=== PATIENT | female | born 1935 | race Caucasian/White ===

== ENCOUNTER → 2017-08-07 | Outpatient (CLI) | payer MEDICARE, OTHER ==
[~2017-08-07] MED LIST: ACET325 PO; CIPRO500 MG PO; CITA20 PO; CVS OMEGA-3 KR1 EACH PO; CYAN1000 PO; Citalopram HBr20 MG; DICL75ER PO; Desyrel150 MG PO; FLUC150A PO; FLUO20 PO; GABA100; HYDR1TAB94 PO; HYDRO; LAVAP17G PO; LEVSOD100 PO; LEVSOD50 PO; LEVSOD88 PO; LISHYD2025 PO; LISI10; LISI20 PO; MUPI2TO TOP; Norco 5-325 Ta1 EACH PO; OMEP20ER PO; ONDA4ODT MM; OXYB5 PO; OXYB5ER PO; PYRI100; Pyridium200 MG; Pyridium200 MG PO; SIMV10 PO; SIMV20 PO; Simvastatin20 MG; TRAZ100 PO; TRAZ150T57; Unithroid100 MCG PO; VITAMIN D 5000U PO
[2017-08-07 11:27] LABS: Source, Urine Clean Catch
[2017-08-07 11:52] LABS: Appearance, Urine Cloudy (Clear); Bilirubin, Urine Neg (Neg); Blood, Urine 3+ (Neg); Color, Urine Yellow (P-Yellow); Glucose Qualitative, Urine Neg (Neg); Ketones, Urine Neg (Neg); Leukocyte Esterase, Urine 3+ (Neg); Nitrite, Urine Neg (Neg); Protein, Urine 2+ (Neg); Urobilinogen, Urine NORM (Normal)
[2017-08-07 12:07] LABS: Bacteria Many /hpf; Red Blood Cells, Urine 0-2 /hpf (0-2); Squamous Epithelial Cells Rare /hpf (Few); White Blood Cells, Urine TNTC /hpf (0-5)
[2017-08-07 12:10] LABS: Creatinine, Urine Random 42.4 mg/dL (27.00-270.00); Protein, Urine Random 36.4 mg/dL (0.0-11.9)
== END | disposition home or self-care (01) ==
LOC: LAB SHORT 11:25 → LAB 11:25
PROVIDERS: Internal Medicine
DX: N18.3 Chronic kidney disease, stage 3 (moderate) (principal); N39.0 Urinary tract infection, site not specified
CPT/HCPCS: 81001; 82570; 84156; 87077; 87086; 87186

== ENCOUNTER 2018-08-23 17:45 | Inpatient (IN) | payer MEDICARE, OTHER ==
[~2018-08-23] VITALS: Ht 165.1 cm; Wt 57.5 kg
[~2018-08-23 17:45] MED LIST changes: -VITAMIN D 5000U PO; +VITAMIN D PO
[2018-08-23 18:22] LABS: BASOPHILS ABSOLUTE AUTO 0.05 K/mm3 (0.00-0.23); BASOPHILS PERCENT AUTO 1 % (0-2); EOSINOPHILS PERCENT AUTO 1 % (0-6); Hematocrit 30.1 % (33.0-51.0); Hemoglobin 9.4 g/dL (11.5-16.0); IMMATURE GRAN ABSOLUTE AUTO 0.05 K/mm3 (0.00-0.10); IMMATURE GRAN PERCENT AUTO 1 % (0-1); LYMPHOCYTES ABSOLUTE AUTO 2.69 K/mm3 (0.84-5.20); LYMPHOCYTES PERCENT AUTO 24 % (21-46); MONOCYTES ABSOLUTE AUTO 1.03 K/mm3 (0.16-1.47); MONOCYTES PERCENT AUTO 9 % (4-13); Mean Corpuscular HGB 27.6 pg (26.0-34.0); Mean Corpuscular HGB Conc 31.2 g/dL (31.5-36.5); Mean Corpuscular Volume 89 fL (80-100); Mean Platelet Volume 11.4 fL (9.1-12.4); NEUTROPHILS ABSOLUTE AUTO 7.12 K/mm3 (1.96-9.15); NEUTROPHILS PERCENT AUTO 64 % (41-73); Platelet Count 297 K/mm3 (150-400); RDW Coefficient Variation 17.2 % (11.7-14.2); RDW Standard Deviation 55.3 fL (35.1-46.3); White Blood Cell Count 11.04 K/mm3 (4.00-11.30)
[2018-08-23 18:46] LABS: Albumin, Blood 3.6 g/dL (3.4-5.0); Bilirubin, Total 0.4 mg/dL (0.1-1.0); Calcium, Blood 10.6 mg/dL (8.5-10.1); Creatinine, Blood 1.33 mg/dL (0.40-1.00); Globulin, Blood 3.5 g/dL (2.2-4.0); Potassium, Blood 3.7 mmol/L (3.5-5.5); Total Protein, Blood 7.1 g/dL (6.4-8.2)
[2018-08-23 18:52] LABS: Source, Urine Clean Catch
[2018-08-23 19:04] LABS: Blood, Urine 4+ (Neg); Glucose Qualitative, Urine Neg (Neg); Ketones, Urine Neg (Neg); Leukocyte Esterase, Urine Neg (Neg); Nitrite, Urine Neg (Neg); Protein, Urine 4+ (Neg); Specific Gravity, Urine 1.015 (1.003-1.022); Urobilinogen, Urine NORM (Normal)
[2018-08-23 19:14] LABS: Appearance, Urine Bloody (Clear); Bilirubin, Urine 1+ (Neg); Color, Urine Red (P-Yellow)
[2018-08-23 19:15] LABS: Red Blood Cells, Urine TNTC /hpf (0-2)
[2018-08-23 19:16] LABS: Bacteria Many /hpf; Squamous Epithelial Cells Few /hpf (Few)
--- NOTE | 2018-08-24 05:33 | NUR ---
SHIFT SUMMARY PT WAS A NEW ADMIT TO FLOOR AROUND 0000 LAST NIGHT. AOX3, REPORTS "NOT ABLE TO THINK CLEARLY," DUE TO FEELING WEAK & EXHAUSTED. FOLLOWS DIRECTIONS. PER TELE PROCESS PUMPER PT IS NSR W/HR 80. DENIES SOB. REPORTED FEELING NAUSEOUS & WAS MEDICATED 1X W/ZOFRAN PER ORDERS. REPORTS 7-10 PAIN IN LOWER ABD UNDER UMBILICUS, ABD VERY TENDER TO PALPATION W/HYPOACTIVE BT. PT VERY WEAK, SHAKY & UNSTEADY ON FEET, NEED 2 ASSIST W/GAIT BELT FOR TRANSFERS. PT IS STILL HAVING ACTIVE BLEEDING & SOAKED THROUGH A PULL UP W/EXTRA PAD IN ROUGHLY 2 HOURS. PT HAS ONLY PASSED 1 BLOOD CLOT ROUGHLY 2INCH LONG. CALL LIGHT IS IN REACH & BED ALARM IS PLACED FOR SAFETY.
[2018-08-24 08:30] LABS: BASOPHILS ABSOLUTE AUTO 0.03 K/mm3 (0.00-0.23); BASOPHILS PERCENT AUTO 0 % (0-2); EOSINOPHILS PERCENT AUTO 0 % (0-6); Hemoglobin 8.5 g/dL (11.5-16.0); IMMATURE GRAN ABSOLUTE AUTO 0.07 K/mm3 (0.00-0.10); IMMATURE GRAN PERCENT AUTO 1 % (0-1); LYMPHOCYTES ABSOLUTE AUTO 1.25 K/mm3 (0.84-5.20); LYMPHOCYTES PERCENT AUTO 8 % (21-46); MONOCYTES ABSOLUTE AUTO 1.31 K/mm3 (0.16-1.47); MONOCYTES PERCENT AUTO 9 % (4-13); Mean Corpuscular HGB 28.1 pg (26.0-34.0); Mean Corpuscular HGB Conc 31.5 g/dL (31.5-36.5); Mean Corpuscular Volume 89 fL (80-100); Mean Platelet Volume 11.9 fL (9.1-12.4); NEUTROPHILS ABSOLUTE AUTO 12.36 K/mm3 (1.96-9.15); NEUTROPHILS PERCENT AUTO 82 % (41-73); Platelet Count 290 K/mm3 (150-400); RDW Coefficient Variation 17.4 % (11.7-14.2); RDW Standard Deviation 57.7 fL (35.1-46.3); Red Blood Cell Count 3.02 M/mm3 (3.80-5.20); White Blood Cell Count 15.02 K/mm3 (4.00-11.30)
[2018-08-24 08:39] LABS: Bun/Creatinine Ratio 18.6 (12.0-20.0); Creatinine, Blood 1.29 mg/dL (0.40-1.00); Potassium, Blood 3.6 mmol/L (3.5-5.5)
[2018-08-24 12:26] LABS: Hematocrit 24.6 % (33.0-51.0); Hemoglobin 7.9 g/dL (11.5-16.0)
[2018-08-24 13:14] LABS: Source, Urine Catheter
[2018-08-24 13:20] LABS: Bilirubin, Urine Neg (Neg); Blood, Urine 4+ (Neg); Glucose Qualitative, Urine Neg (Neg); Ketones, Urine Neg (Neg); Leukocyte Esterase, Urine Neg (Neg); Nitrite, Urine Neg (Neg); Protein, Urine 4+ (Neg); Specific Gravity, Urine 1.015 (1.003-1.022); Urobilinogen, Urine NORM (Normal)
[2018-08-24 14:04] LABS: Appearance, Urine Bloody (Clear); Color, Urine Red (P-Yellow)
[2018-08-24 14:08] LABS: Red Blood Cells, Urine TNTC /hpf (0-2)
[2018-08-24 14:20] LABS: Bacteria Few /hpf; Squamous Epithelial Cells Few /hpf (Few)
--- NOTE | 2018-08-24 17:49 | NUR ---
FOUND CATHETER OUT, BALOON DEFLATED, PT DENIES PULLING IT, NEW ONE TO BE PLACED
[2018-08-24 18:04] LABS: Source, Urine Catheter
[2018-08-24 18:15] LABS: Bilirubin, Urine Neg (Neg); Blood, Urine 4+ (Neg); Glucose Qualitative, Urine Neg (Neg); Ketones, Urine Neg (Neg); Leukocyte Esterase, Urine Neg (Neg); Nitrite, Urine Neg (Neg); Protein, Urine 4+ (Neg); Specific Gravity, Urine 1.015 (1.003-1.022); Urobilinogen, Urine NORM (Normal)
--- NOTE | 2018-08-24 18:16 | NUR ---
SUMMARY PT AWAKE IN BED EATING HER DINNER, POOR APPETITE, PT HAS BEEN MEDICATED PER EMAR FOR PAIN IN HER ABD, RUCKER CATH REPLACED THIS EVENING, PT ANABEL WELL, RUCKER IRRIGATED Q4 HOURS AND PRN, RARE SMALL BLOOD CLOT SEEN, URINE REMAINS DARK BURGUNDY IN COLOR, DR EDWARDS AWARE, WANTS TO CONTINUE TO MONITOR FOR CLOTS AND BLEEDING, VSS, WILL CONT TO MONITOR
[2018-08-24 18:40] LABS: Appearance, Urine Bloody (Clear); Color, Urine Red (P-Yellow)
[2018-08-24 18:42] LABS: Bacteria Rare /hpf; Red Blood Cells, Urine TNTC /hpf (0-2); Squamous Epithelial Cells Not Seen /hpf (Few); White Blood Cells, Urine 25-50 /hpf (0-5)
--- NOTE | 2018-08-24 18:42 | NUR ---
CATHETER REPLACED, PT ANABEL POORLY, BALOON INFLATED, BURGUNDY URINE
[2018-08-25 05:29] LABS: BASOPHILS ABSOLUTE AUTO 0.06 K/mm3 (0.00-0.23); BASOPHILS PERCENT AUTO 1 % (0-2); EOSINOPHILS ABSOLUTE AUTO 0.04 K/mm3 (0.00-0.68); EOSINOPHILS PERCENT AUTO 0 % (0-6); Hematocrit 23.7 % (33.0-51.0); Hemoglobin 7.4 g/dL (11.5-16.0); IMMATURE GRAN ABSOLUTE AUTO 0.04 K/mm3 (0.00-0.10); IMMATURE GRAN PERCENT AUTO 0 % (0-1); LYMPHOCYTES ABSOLUTE AUTO 1.94 K/mm3 (0.84-5.20); LYMPHOCYTES PERCENT AUTO 17 % (21-46); MONOCYTES ABSOLUTE AUTO 1.39 K/mm3 (0.16-1.47); MONOCYTES PERCENT AUTO 12 % (4-13); Mean Corpuscular HGB 28.7 pg (26.0-34.0); Mean Corpuscular HGB Conc 31.2 g/dL (31.5-36.5); Mean Platelet Volume 11.8 fL (9.1-12.4); NEUTROPHILS ABSOLUTE AUTO 8.16 K/mm3 (1.96-9.15); NEUTROPHILS PERCENT AUTO 70 % (41-73); Platelet Count 240 K/mm3 (150-400); RDW Coefficient Variation 17.8 % (11.7-14.2); RDW Standard Deviation 59.8 fL (35.1-46.3); Red Blood Cell Count 2.58 M/mm3 (3.80-5.20); White Blood Cell Count 11.63 K/mm3 (4.00-11.30)
[2018-08-25 05:30] LABS: Mean Corpuscular Volume 92 fL (80-100)
--- NOTE | 2018-08-25 06:39 | NUR ---
a+o, pain controlled with medication, call light in reach, urin still red, catheter flushed, room air, appeared to rest peacfully but stated that she was unable to sleep
[2018-08-25 11:37] LABS: Hematocrit 23.9 % (33.0-51.0); Hemoglobin 7.3 g/dL (11.5-16.0)
[2018-08-26 05:29] LABS: BASOPHILS ABSOLUTE AUTO 0.04 K/mm3 (0.00-0.23); BASOPHILS PERCENT AUTO 1 % (0-2); EOSINOPHILS PERCENT AUTO 3 % (0-6); Hemoglobin 7.9 g/dL (11.5-16.0); IMMATURE GRAN ABSOLUTE AUTO 0.03 K/mm3 (0.00-0.10); IMMATURE GRAN PERCENT AUTO 0 % (0-1); LYMPHOCYTES ABSOLUTE AUTO 1.52 K/mm3 (0.84-5.20); LYMPHOCYTES PERCENT AUTO 19 % (21-46); MONOCYTES ABSOLUTE AUTO 0.99 K/mm3 (0.16-1.47); MONOCYTES PERCENT AUTO 13 % (4-13); Mean Corpuscular HGB 27.9 pg (26.0-34.0); Mean Corpuscular HGB Conc 30.4 g/dL (31.5-36.5); Mean Corpuscular Volume 92 fL (80-100); Mean Platelet Volume 11.5 fL (9.1-12.4); NEUTROPHILS ABSOLUTE AUTO 5.14 K/mm3 (1.96-9.15); NEUTROPHILS PERCENT AUTO 65 % (41-73); Platelet Count 224 K/mm3 (150-400); RDW Coefficient Variation 17.6 % (11.7-14.2); RDW Standard Deviation 59.6 fL (35.1-46.3); Red Blood Cell Count 2.83 M/mm3 (3.80-5.20); White Blood Cell Count 7.92 K/mm3 (4.00-11.30)
[2018-08-26 06:42] LABS: Bun/Creatinine Ratio 15.8 (12.0-20.0); Calcium, Blood 9.9 mg/dL (8.5-10.1); Creatinine, Blood 1.2 mg/dL (0.40-1.00); Potassium, Blood 3.9 mmol/L (3.5-5.5)
--- NOTE | 2018-08-26 07:24 | NUR ---
new iv, a+o, focused on pain, call light in reach, saline locked, room air, sbar report provided to returning staff.
--- NOTE | 2018-08-26 08:28 | NUR ---
RUCKER IRRIGATED WITH 30 ML STERILE WATER. MILKED FLUID OUT AFTER IRRIGATION. NOT DARK YESTERDAY, BUT WITH VERY TINY CLOTS. PATIENT SLEEPING.
--- NOTE | 2018-08-26 10:29 | NUR ---
DENIES PAIN AT THIS TIME. RUCKER IRRIGATED FOR SECOND TIME THIS SHIFT. STILL DRAINING DARK RED URINE.
--- NOTE | 2018-08-26 12:00 | NUR ---
RUCKER IRRIGATED WITH ABOUT 320 ML STERILE WATER. LAST RETURN WAS LIGHT RED. SOME SMALL CLOTS. CATCHER FILTER TIP TO TAKE OUT RUCKER.
--- NOTE | 2018-08-26 15:16 | NUR ---
AWARE PATIENT REFUSED LAB DRAW X 2. HAD LARGE CLOTS WHEN USING BSC. PER ; RUN IN ONE BAG IV THEN SALINE LOCK, WILL TRY LAB DRAW IN A.M., LEAVE RUCKER OUT.
--- NOTE | 2018-08-26 19:06 | NUR ---
ALERT. ORIENTED. INTERMITTENT PLEASANT, COOPERATIVE TO VERY ANGRY AND UNCOOPERATIVE. LARGE BLOOD CLOTS X 2 WHEN TAKEN TO BSC. MEDICATED FOR PAIN X ONE WITH GOOD RESULTS. WILL NEED H&H IN AM PER . ONE PERSON ASSIST. GOOD APPETITE. REPORT TO NIGHT RN
--- NOTE | 2018-08-27 05:01 | NUR ---
VSS, AFEBRILE, A/O, PT SLEPT WELL OVERNOC. NO COMPLAINTS. NO SIGNIFICANT CHANGES NOTED. WILL REPORT TO ON-COMING SHIFT.
--- NOTE | 2018-08-27 05:16 | NUR ---
PT REQUESTED THAT LIDOCAINE BE APPLIED TO THE SITE PRIOR TO LAB DRAWING BLOOD. HOWEVER, SHE THEN TOLD LAB THAT IT WAS NOT NUMB ENOUGH AND REFUSED TO PERMIT LABS TO BE DRAWN. WILL REPORT TO ON-COMING SHIFT.
[2018-08-27 15:24] LABS: BASOPHILS ABSOLUTE AUTO 0.03 K/mm3 (0.00-0.23); BASOPHILS PERCENT AUTO 0 % (0-2); EOSINOPHILS PERCENT AUTO 2 % (0-6); Hematocrit 23.3 % (33.0-51.0); Hemoglobin 7.1 g/dL (11.5-16.0); IMMATURE GRAN ABSOLUTE AUTO 0.04 K/mm3 (0.00-0.10); IMMATURE GRAN PERCENT AUTO 1 % (0-1); LYMPHOCYTES ABSOLUTE AUTO 1.53 K/mm3 (0.84-5.20); LYMPHOCYTES PERCENT AUTO 17 % (21-46); MONOCYTES ABSOLUTE AUTO 0.71 K/mm3 (0.16-1.47); MONOCYTES PERCENT AUTO 8 % (4-13); Mean Corpuscular HGB 28.2 pg (26.0-34.0); Mean Corpuscular HGB Conc 30.5 g/dL (31.5-36.5); Mean Corpuscular Volume 93 fL (80-100); Mean Platelet Volume 11.2 fL (9.1-12.4); NEUTROPHILS ABSOLUTE AUTO 6.36 K/mm3 (1.96-9.15); NEUTROPHILS PERCENT AUTO 72 % (41-73); Platelet Count 278 K/mm3 (150-400); RDW Coefficient Variation 17.3 % (11.7-14.2); RDW Standard Deviation 58.3 fL (35.1-46.3); Red Blood Cell Count 2.52 M/mm3 (3.80-5.20); White Blood Cell Count 8.87 K/mm3 (4.00-11.30)
--- NOTE | 2018-08-27 18:43 | NUR ---
SHIFT SUMMARY PT PLEASANT TODAY. STATES SHE APPRECIATES HAVING THINGS EXPLAINED TO HER. ENCOURAGED HER TO ASK QUESTIONS IF SHE DOESN'T KNOW AND I WOULD BE HAPPY TO EXPLAIN MORE. SPOKE WITH GRANDDAUGHTER ON PHONE WITH PTS VERBAL APPROVAL. SPOKE WITH DEVEN VILLATORO ATTACHE WELL IN REGARDS TO GRANDDAUGHTER CONCERN ABOUT PT GOING BACK HOME AND HOPING TO COME UP FROM [place] PRIOR TO PT DISCHARGING. CONTINUES TO HAVE BLEEDING IN ATTENDS WITH ONLY A FEW SMALL CLOTS.
--- NOTE | 2018-08-28 05:18 | NUR ---
VSS, AFEBRILE, A/O, PT SLEPT WELL OVERNOC. PT AWOKE IN A FAIRLY COOPERATIVE MOOD TODAY AND PERMITTED THE LAB TO DRAW BLOOD FOR ORDERED LAB WORK. PT APPEARS TO BE IN BETTER SPIRITS THIS MORNING. NO SIGNIFICANT CHANGES NOTED. WILL REPORT TO ON-COMING SHIFT.
[2018-08-28 05:25] LABS: BASOPHILS ABSOLUTE AUTO 0.03 K/mm3 (0.00-0.23); BASOPHILS PERCENT AUTO 1 % (0-2); EOSINOPHILS ABSOLUTE AUTO 0.26 K/mm3 (0.00-0.68); EOSINOPHILS PERCENT AUTO 5 % (0-6); Hematocrit 22.9 % (33.0-51.0); IMMATURE GRAN ABSOLUTE AUTO 0.03 K/mm3 (0.00-0.10); IMMATURE GRAN PERCENT AUTO 1 % (0-1); LYMPHOCYTES ABSOLUTE AUTO 1.46 K/mm3 (0.84-5.20); LYMPHOCYTES PERCENT AUTO 29 % (21-46); MONOCYTES ABSOLUTE AUTO 0.76 K/mm3 (0.16-1.47); MONOCYTES PERCENT AUTO 15 % (4-13); Mean Corpuscular HGB 28.2 pg (26.0-34.0); Mean Corpuscular HGB Conc 30.6 g/dL (31.5-36.5); Mean Corpuscular Volume 92 fL (80-100); Mean Platelet Volume 11.2 fL (9.1-12.4); NEUTROPHILS ABSOLUTE AUTO 2.52 K/mm3 (1.96-9.15); NEUTROPHILS PERCENT AUTO 50 % (41-73); Platelet Count 301 K/mm3 (150-400); RDW Coefficient Variation 17.4 % (11.7-14.2); RDW Standard Deviation 58.7 fL (35.1-46.3); Red Blood Cell Count 2.48 M/mm3 (3.80-5.20); White Blood Cell Count 5.06 K/mm3 (4.00-11.30)
[2018-08-28 05:46] LABS: Albumin, Blood 2.5 g/dL (3.4-5.0); Anion Gap 4 mmol/L (6-16); Blood Urea Nitrogen 19 mg/dL (8-24); CO2, Blood 29 mmol/L (21-32); Calcium, Blood 9.9 mg/dL (8.5-10.1); Chloride, Blood 106 mmol/L (98-108); Creatinine, Blood 1.27 mg/dL (0.40-1.00); Glomerular Filtration Rate 43 (60-); Glucose, Blood 97 mg/dL (70-99); Phosphorus, Blood 2.7 mg/dL (2.5-4.9); Potassium, Blood 4.2 mmol/L (3.5-5.5); Sodium, Blood 139 mmol/L (136-145)
[2018-08-28 14:46] LABS: Source, Urine Catheter
[2018-08-28 14:53] LABS: Appearance, Urine Cloudy (Clear); Bilirubin, Urine Neg (Neg); Blood, Urine 5+ (Neg); Color, Urine Yellow (P-Yellow); Glucose Qualitative, Urine Neg (Neg); Ketones, Urine Neg (Neg); Leukocyte Esterase, Urine 3+ (Neg); Nitrite, Urine Neg (Neg); Protein, Urine 2+ (Neg); Urobilinogen, Urine NORM (Normal)
[2018-08-28 15:06] LABS: Red Blood Cells, Urine 50-100 /hpf (0-2); White Blood Cells, Urine 50-100 /hpf (0-5)
[2018-08-28 15:07] LABS: Bacteria Rare /hpf; Squamous Epithelial Cells Rare /hpf (Few)
--- NOTE | 2018-08-28 20:05 | NUR ---
SHE HAS NOT HAD HEMATURIA TODAY. SHE REMAINS INCONTINENT. UA SENT TO LAB TODAY. HER 2ND UNIT OF PRBC'S IS INFUSING. SHE RECEIVED LASIX AFTER THE FIRST UNIT. VSS. MEDICATED FOR LOW BACK PAIN X1 TODAY WITH PO DILAUDID. NO DIZZINESS OR C/O SOB. LUNGS REMAIN CLEAR. HIGHEST TEMP 99.8. MOM GIVEN FOR CONSTIPATION. NO BM YET. HER GRANDDAUGHTER CALLED THE PATIENT ADVOCATE UPSET THAT WE WERE NOT COMMUNICATING WITH HER. I NOTIFIED THAT THE PATIENT WANTS HIM TO CALL HER TO DISCUSS HER MEDICAL PLAN. HE SAYS HE WILL BE GLAD TO CALL HER TOMORROW.
--- NOTE | 2018-08-29 05:15 | NUR ---
VSS, AFEBRILE, A/O. PT SLEPT VERY WELL OVERNOC. PT ANTICIPATES BEING D/C'D TODAY OR TOMORROW AND APPEARS TO BE IN GOOD SPIRITS ABOUT IT. NO COMPLAINTS. NO SIGNIFICANT CHANGES NOTED. WILL REPORT TO ON-COMING SHIFT.
[2018-08-29 05:46] LABS: BASOPHILS ABSOLUTE AUTO 0.06 K/mm3 (0.00-0.23); BASOPHILS PERCENT AUTO 1 % (0-2); EOSINOPHILS ABSOLUTE AUTO 0.34 K/mm3 (0.00-0.68); EOSINOPHILS PERCENT AUTO 5 % (0-6); Hematocrit 29.7 % (33.0-51.0); Hemoglobin 9.7 g/dL (11.5-16.0); IMMATURE GRAN ABSOLUTE AUTO 0.04 K/mm3 (0.00-0.10); IMMATURE GRAN PERCENT AUTO 1 % (0-1); LYMPHOCYTES ABSOLUTE AUTO 1.64 K/mm3 (0.84-5.20); LYMPHOCYTES PERCENT AUTO 26 % (21-46); MONOCYTES ABSOLUTE AUTO 0.91 K/mm3 (0.16-1.47); MONOCYTES PERCENT AUTO 14 % (4-13); Mean Corpuscular HGB 28.5 pg (26.0-34.0); Mean Corpuscular HGB Conc 32.7 g/dL (31.5-36.5); NEUTROPHILS ABSOLUTE AUTO 3.37 K/mm3 (1.96-9.15); NEUTROPHILS PERCENT AUTO 53 % (41-73); Platelet Count 311 K/mm3 (150-400); RDW Coefficient Variation 16.9 % (11.7-14.2); RDW Standard Deviation 51.7 fL (35.1-46.3); White Blood Cell Count 6.36 K/mm3 (4.00-11.30)
[2018-08-29 05:50] LABS: Mean Corpuscular Volume 87 fL (80-100)
[2018-08-29 06:10] LABS: Albumin, Blood 2.8 g/dL (3.4-5.0); Anion Gap 4 mmol/L (6-16); Blood Urea Nitrogen 23 mg/dL (8-24); Bun/Creatinine Ratio 18.4 (12.0-20.0); CO2, Blood 30 mmol/L (21-32); Calcium, Blood 10.2 mg/dL (8.5-10.1); Chloride, Blood 103 mmol/L (98-108); Creatinine, Blood 1.25 mg/dL (0.40-1.00); Glomerular Filtration Rate 43 (60-); Glucose, Blood 95 mg/dL (70-99); Phosphorus, Blood 2.9 mg/dL (2.5-4.9); Potassium, Blood 3.9 mmol/L (3.5-5.5); Sodium, Blood 137 mmol/L (136-145)
[2018-08-29] MEDS ORDERED: SERT100 PO (11:36)
--- NOTE | 2018-08-29 15:41 | NUR ---
DISCHARGE SUMMARY PATIENT A&O X4. DENIES ANY PAIN, SOB, OR NAUSEA. PATIENT HAS NOT HAD ANY ACUTE CHANGES THIS SHIFT. RN MEDICATED PER E JUN. DISCHARGE INSTRUCTIONS WERE REVIEWED WITH THE PATIENT AND HER FAMILY WHO WAS AT THE BEDSIDE. MEDICATIONS WERE FAXED TO [facility]. [facility] IS TO CALL TOMORROW 08/30/18 TO SCHEDULE PATIENTS FOLLOW UP APPOINTMENT. [facility] WILL BE REFERRED TO A UROLOGIST. IV WAS D/C, WNL. DISTRICT PLANT SUPERVISOR ESCORTED PATIENT OUT BY WHEELCHAIR, ALL BELONGINGS IN HAND.
== END 2018-08-29 13:24 | disposition home or self-care (01) | DRG 690 ==
LOC: ER 17:45 → MEDS 17:46 → ENPENDDIS 08-29 12:04 → MEDS 08-29 13:24
PROVIDERS: Emergency Medicine; Family Medicine; Internal Medicine Endocrinology, Diabetes & Metabolism; ADMIT Internal Medicine
PROC: 30233N1 Transfusion of Nonautologous Red Blood Cells into Peripheral Vein, Percutaneous Approach (ICD-10-PCS; principal; 2018-08-28)
DX: N30.91 Cystitis, unspecified with hematuria (principal); D62 Acute posthemorrhagic anemia; Z92.21 Personal history of antineoplastic chemotherapy; F41.8 Other specified anxiety disorders; E78.5 Hyperlipidemia, unspecified; E03.9 Hypothyroidism, unspecified; M19.90 Unspecified osteoarthritis, unspecified site; R32 Unspecified urinary incontinence; I16.0 Hypertensive urgency; N18.3 Chronic kidney disease, stage 3 (moderate); I12.9 Hypertensive chronic kidney disease with stage 1 through stage 4 chronic kidney disease, or unspecified chronic kidney disease
CPT/HCPCS: 36415; 51702; 74176; 80048; 80053; 80069; 81001; 82947; 83690; 85014; 85018; 85025; 86850; 86900; 86901; 86923; 87077; 87086; 87186; 96361-59; 96365-59; 96366-59; 96375-59; 96376; 96376-59; 99285-25; G0378; J0696; J1170; J1940; J2405; J3480; J7030; P9016; Q0163

== ENCOUNTER 2019-03-07 08:43 | Emergency (ER) | payer MEDICARE, OTHER ==
[~2019-03-07] VITALS: Ht 162.6 cm; Wt 57.1 kg
[~2019-03-07 08:43] MED LIST changes: +SERT100 PO
[2019-03-07] MEDS ORDERED: GABA100 PO (08:51)
[2019-03-07] MEDS ORDERED: OXYB5 PO (08:52)
[2019-03-07 09:23] LABS: BASOPHILS ABSOLUTE AUTO 0.04 K/mm3 (0.00-0.23); BASOPHILS PERCENT AUTO 0 % (0-2); EOSINOPHILS ABSOLUTE AUTO 0.08 K/mm3 (0.00-0.68); EOSINOPHILS PERCENT AUTO 1 % (0-6); Hematocrit 30.9 % (33.0-51.0); Hemoglobin 10.1 g/dL (11.5-16.0); IMMATURE GRAN ABSOLUTE AUTO 0.18 K/mm3 (0.00-0.10); IMMATURE GRAN PERCENT AUTO 2 % (0-1); LYMPHOCYTES ABSOLUTE AUTO 1.65 K/mm3 (0.84-5.20); LYMPHOCYTES PERCENT AUTO 16 % (21-46); MONOCYTES ABSOLUTE AUTO 1.46 K/mm3 (0.16-1.47); MONOCYTES PERCENT AUTO 15 % (4-13); Mean Corpuscular HGB 31.2 pg (26.0-34.0); Mean Corpuscular HGB Conc 32.7 g/dL (31.5-36.5); Mean Corpuscular Volume 95 fL (80-100); Mean Platelet Volume 10.8 fL (9.1-12.4); NEUTROPHILS ABSOLUTE AUTO 6.68 K/mm3 (1.96-9.15); NEUTROPHILS PERCENT AUTO 66 % (41-73); Platelet Count 389 K/mm3 (150-400); RDW Coefficient Variation 15.6 % (11.7-14.2); RDW Standard Deviation 53.5 fL (35.1-46.3); Red Blood Cell Count 3.24 M/mm3 (3.80-5.20); White Blood Cell Count 10.09 K/mm3 (4.00-11.30)
[2019-03-07 09:39] LABS: Alanine Aminotransfer (ALT/SGP 22 U/L (12-78); Albumin, Blood 2.8 g/dL (3.4-5.0); Albumin/Globulin Ratio 0.7 (0.8-1.8); Alk Phos 80 U/L (50-136); Anion Gap 5 mmol/L (6-16); Aspartate Aminotrans (AST/SGOT 27 U/L (12-37); Bilirubin, Total 0.3 mg/dL (0.1-1.0); Blood Urea Nitrogen 49 mg/dL (8-24); Bun/Creatinine Ratio 26.9 (12.0-20.0); CO2, Blood 28 mmol/L (21-32); Calcium, Blood 11.2 mg/dL (8.5-10.1); Chloride, Blood 100 mmol/L (98-108); Creatinine, Blood 1.82 mg/dL (0.40-1.00); Globulin, Blood 4.1 g/dL (2.2-4.0); Glomerular Filtration Rate 28 (60-); Glucose, Blood 92 mg/dL (70-99); Sodium, Blood 133 mmol/L (136-145); Total Protein, Blood 6.9 g/dL (6.4-8.2); Troponin I <0.015 ng/mL (0.000-0.040)
[2019-03-07] MEDS ORDERED: HYDR1TAB94 PO (12:10)
[2019-03-07] MEDS ORDERED: ONDA4ODT SL (12:10)
[2019-03-07 12:32] LABS: Source, Urine Voided
[2019-03-07 12:43] LABS: Bilirubin, Urine Neg (Neg); Blood, Urine 5+ (Neg); Glucose Qualitative, Urine Neg (Neg); Ketones, Urine Neg (Neg); Leukocyte Esterase, Urine 3+ (Neg); Nitrite, Urine Neg (Neg); Protein, Urine 4+ (Neg); Urobilinogen, Urine NORM (Normal)
[2019-03-07 12:52] LABS: Appearance, Urine Bloody (Clear); Color, Urine Red (P-Yellow)
[2019-03-07 12:53] LABS: Red Blood Cells, Urine TNTC /hpf (0-2); White Blood Cells, Urine TNTC /hpf (0-5)
[2019-03-07 12:54] LABS: Bacteria Few /hpf; Squamous Epithelial Cells Few /hpf (Few)
== END 2019-03-07 13:19 | disposition home or self-care (01) ==
LOC: ER 08:43
PROVIDERS: Emergency Medicine
DX: S06.9X9A Unspecified intracranial injury with loss of consciousness of unspecified duration, initial encounter (principal); E86.0 Dehydration; R31.9 Hematuria, unspecified; I10 Essential (primary) hypertension; F41.9 Anxiety disorder, unspecified; F32.9 Major depressive disorder, single episode, unspecified; E78.5 Hyperlipidemia, unspecified; E03.9 Hypothyroidism, unspecified; Z85.72 Personal history of non-Hodgkin lymphomas; Z79.899 Other long term (current) drug therapy; W01.10XA Fall on same level from slipping, tripping and stumbling with subsequent striking against unspecified object, initial encounter
CPT/HCPCS: 70450; 71046; 72125; 80053; 81001; 83880; 84443; 84484; 85025; 93005; 93010; 96361; 96374; 96375; 96376; 99285-25; J2405; J3010; J7030; P9612

== ENCOUNTER 2019-03-21 13:36 | Inpatient (IN) | payer MEDICARE, OTHER ==
[~2019-03-21] VITALS: Ht 165.1 cm; Wt 50.9 kg
[~2019-03-21 13:36] MED LIST changes: +GABA100 PO; +ONDA4ODT SL
[2019-03-21 14:51] LABS: BASOPHILS ABSOLUTE AUTO 0.03 K/mm3 (0.00-0.23); BASOPHILS PERCENT AUTO 0 % (0-2); EOSINOPHILS ABSOLUTE AUTO 0.01 K/mm3 (0.00-0.68); EOSINOPHILS PERCENT AUTO 0 % (0-6); Hematocrit 26.3 % (33.0-51.0); Hemoglobin 8.9 g/dL (11.5-16.0); IMMATURE GRAN ABSOLUTE AUTO 0.21 K/mm3 (0.00-0.10); IMMATURE GRAN PERCENT AUTO 1 % (0-1); LYMPHOCYTES ABSOLUTE AUTO 0.93 K/mm3 (0.84-5.20); LYMPHOCYTES PERCENT AUTO 5 % (21-46); MONOCYTES ABSOLUTE AUTO 1.63 K/mm3 (0.16-1.47); MONOCYTES PERCENT AUTO 9 % (4-13); Mean Corpuscular HGB 31.1 pg (26.0-34.0); Mean Corpuscular HGB Conc 33.8 g/dL (31.5-36.5); Mean Corpuscular Volume 92 fL (80-100); Mean Platelet Volume 10.1 fL (9.1-12.4); NEUTROPHILS ABSOLUTE AUTO 16.04 K/mm3 (1.96-9.15); NEUTROPHILS PERCENT AUTO 85 % (41-73); Platelet Count 522 K/mm3 (150-400); RDW Coefficient Variation 15.3 % (11.7-14.2); RDW Standard Deviation 50.4 fL (35.1-46.3); Red Blood Cell Count 2.86 M/mm3 (3.80-5.20); White Blood Cell Count 18.85 K/mm3 (4.00-11.30)
[2019-03-21 15:04] LABS: Bilirubin, Urine Neg (Neg); Blood, Urine 5+ (Neg); Glucose Qualitative, Urine Neg (Neg); Ketones, Urine Neg (Neg); Leukocyte Esterase, Urine 3+ (Neg); Nitrite, Urine Neg (Neg); Protein, Urine 3+ (Neg); Source, Urine Clean Catch; Urobilinogen, Urine NORM (Normal); pH, Urine 6.5 (5.0-8.0)
[2019-03-21 15:06] LABS: Albumin, Blood 2.4 g/dL (3.4-5.0); Albumin/Globulin Ratio 0.5 (0.8-1.8); Bilirubin, Total 0.2 mg/dL (0.1-1.0); Bun/Creatinine Ratio 24.4 (12.0-20.0); Calcium, Blood 10.7 mg/dL (8.5-10.1); Creatinine, Blood 2.95 mg/dL (0.40-1.00); Globulin, Blood 4.9 g/dL (2.2-4.0); Potassium, Blood 5.3 mmol/L (3.5-5.5); Total Protein, Blood 7.3 g/dL (6.4-8.2)
[2019-03-21 15:17] LABS: Appearance, Urine Cloudy (Clear); Color, Urine Yellow (P-Yellow)
[2019-03-21 15:18] LABS: Bacteria Many /hpf; Red Blood Cells, Urine 25-50 /hpf (0-2); Squamous Epithelial Cells Few /hpf (Few); White Blood Cells, Urine TNTC /hpf (0-5)
--- NOTE | 2019-03-21 18:23 | NUR ---
PT ARRIVED TO UNIT VIA BED. PT HAS SOME CONFUSION, IS COOPERAITIVE, AND PLESANT. ORIENTATED TO ROOM.
[2019-03-22 05:22] LABS: BASOPHILS ABSOLUTE AUTO 0.02 K/mm3 (0.00-0.23); BASOPHILS PERCENT AUTO 0 % (0-2); EOSINOPHILS PERCENT AUTO 0 % (0-6); Hematocrit 21.9 % (33.0-51.0); Hemoglobin 7.4 g/dL (11.5-16.0); IMMATURE GRAN ABSOLUTE AUTO 0.13 K/mm3 (0.00-0.10); IMMATURE GRAN PERCENT AUTO 1 % (0-1); LYMPHOCYTES ABSOLUTE AUTO 0.94 K/mm3 (0.84-5.20); LYMPHOCYTES PERCENT AUTO 6 % (21-46); MONOCYTES ABSOLUTE AUTO 1.64 K/mm3 (0.16-1.47); MONOCYTES PERCENT AUTO 11 % (4-13); Mean Corpuscular HGB Conc 33.8 g/dL (31.5-36.5); Mean Corpuscular Volume 92 fL (80-100); Mean Platelet Volume 10.5 fL (9.1-12.4); NEUTROPHILS ABSOLUTE AUTO 12.51 K/mm3 (1.96-9.15); NEUTROPHILS PERCENT AUTO 82 % (41-73); Platelet Count 465 K/mm3 (150-400); RDW Coefficient Variation 15.3 % (11.7-14.2); RDW Standard Deviation 50.4 fL (35.1-46.3); Red Blood Cell Count 2.39 M/mm3 (3.80-5.20); White Blood Cell Count 15.24 K/mm3 (4.00-11.30)
[2019-03-22 05:50] LABS: Albumin, Blood 1.9 g/dL (3.4-5.0); Albumin/Globulin Ratio 0.5 (0.8-1.8); Bilirubin, Total 0.4 mg/dL (0.1-1.0); Bun/Creatinine Ratio 27.5 (12.0-20.0); Calcium, Blood 9.4 mg/dL (8.5-10.1); Creatinine, Blood 2.36 mg/dL (0.40-1.00); Globulin, Blood 3.9 g/dL (2.2-4.0); Potassium, Blood 4.9 mmol/L (3.5-5.5); Total Protein, Blood 5.8 g/dL (6.4-8.2)
--- NOTE | 2019-03-22 06:21 | NUR ---
SHIFT SUMMARY PT IS ORIENTED TO SELF, FAMILY, PLACE. DISORIENTED TO DATE/TIME, CURRRENT EVENTS, CONFUSED BY COMMANDS. NS RUNNING @ 100 ML/HR. PT REPORTS EXTREMELY POOR APPETITE FOR THE LAST FEW MONTHS, WONT EAT FOR "SEVERAL DAYS AT A TIME". PT REPORTS WEAKNESS HAS MADE HER BEDRIDDEN AND IMMOBILE FOR THE LAST WEEK OR SO. PT ALSO STATES SHE IS READY TO GIVE UP AND MISSES HER [facility]. PALLIATVE CARE CONSULT. WILL CONT TO MONITOR AND PROIVDE CARE UNTIL PRESUMED BY ONCOMING RN.
--- NOTE | 2019-03-22 15:55 | NUR ---
SHIFT SUMMARY- PT SLEPT INTERMITENTLY THROUGHOUT THIS SHIFT. PT/OT WORKED WITH PT THIS AFTERNOON. FAMILY IN THE ROOM THROUGHOUT THIS SHIFT, FAMILY EXPRESSED CONCERNS ABOUT DISCHARGE AND PLACMENT AFTER HER STAY IN THE HOSPITAL. THEY FEEL SHE NEEDS A HIGHER LEVEL OF CARE THAN WHAT SHE IS CURRENTLY RECIEVING AT HER CURRENT RESIDENCE. RECHARGER CONSULT PLACED.
--- NOTE | 2019-03-22 18:29 | NUR ---
PT ONLY HAD ONE SMALL VOID THIS MORNING. ENCOURAGED PT TO USE THE BEDSIDE CAMMODE OR BEDPAN, PT REFUSED. PREFORMED BLADDER SCAN PT HAD 540 IN HER BLADDER. TOLD PT THAT HER BLADDER WAS FULL AND SHE NEEDED TO VOID, LET HER KNOW THAT SHE WAS WEARING ATTENDS AND THAT WE COULD CLEAN HER UP IF SHE DID NOT WANT TO GET UP. PT VOIDED BUT STOPPED SOON SHE BEGAN TO LEAK OUT OF ATTENDS. RESCANDED BLADDER AND THERE WAS 478 VOLUME. PT SAID SHE DID NOT WANT TO FINISH URINATING IN THE BED BUT DID NOT WANT TO GET UP. I LET PT KNOW THAT THE DR WANTED HER TO HAVE A CATHATER IF SHE WAS UNABLE TO EMPTY HER BLADDER. SPOKE WITH DR. HE SAID TO CONTINUE TO ENCOURAGE HER TO VOID BUT WE WOULD NEED TO PLACE A CATH IF SHE DID NOT. WILL CONTINUE TO ENCOURAGE VOIDING AND WILL NOTIFY ONCOMING NURSE.
--- NOTE | 2019-03-23 05:43 | NUR ---
AROUND 0530 THE PATIENT WAS BLADDER SCANNED AND IT SHOWED URINARY RETENTION >300. PER DR ALLY I STRAIGHT CATHETERIZED THE PATIENT AND WAS ABLE TO DRAIN 550ML OF URINE FROM HER BLADDER.
--- NOTE | 2019-03-23 06:02 | NUR ---
SHIFT SUMMARY PATIENT SLIGHTLY RESISTIVE TO CARE, HOWEVER WHEN THE IMPORTANCE OF THE TASKS ARE EXPLAINED TO HER SHE IS PLEASANT AND AGREEABLE TO THE TASK. SHE HAD BEEN RETAINING URINE AND WAS STRAIGHT CATHED. SHE SLEPT MOST OF THE NIGHT. IV IN LEFT ARM PATENT AND INFUSING. BED IN LOWEST POSITION WITH WHEELS LOCKED AND ALARM ON. CALL LIGHT WITHIN REACH. REPORT GIVEN TO ONCOMING RN.
[2019-03-23 09:54] LABS: BASOPHILS ABSOLUTE AUTO 0.04 K/mm3 (0.00-0.23); BASOPHILS PERCENT AUTO 0 % (0-2); EOSINOPHILS ABSOLUTE AUTO 0.02 K/mm3 (0.00-0.68); EOSINOPHILS PERCENT AUTO 0 % (0-6); Hematocrit 20.5 % (33.0-51.0); Hemoglobin 6.8 g/dL (11.5-16.0); IMMATURE GRAN ABSOLUTE AUTO 0.18 K/mm3 (0.00-0.10); IMMATURE GRAN PERCENT AUTO 2 % (0-1); LYMPHOCYTES ABSOLUTE AUTO 1.45 K/mm3 (0.84-5.20); LYMPHOCYTES PERCENT AUTO 13 % (21-46); MONOCYTES ABSOLUTE AUTO 1.63 K/mm3 (0.16-1.47); MONOCYTES PERCENT AUTO 15 % (4-13); Mean Corpuscular HGB 31.2 pg (26.0-34.0); Mean Corpuscular HGB Conc 33.2 g/dL (31.5-36.5); Mean Corpuscular Volume 94 fL (80-100); Mean Platelet Volume 9.9 fL (9.1-12.4); NEUTROPHILS ABSOLUTE AUTO 7.64 K/mm3 (1.96-9.15); NEUTROPHILS PERCENT AUTO 70 % (41-73); Platelet Count 448 K/mm3 (150-400); RDW Coefficient Variation 15.5 % (11.7-14.2); RDW Standard Deviation 52.8 fL (35.1-46.3); Red Blood Cell Count 2.18 M/mm3 (3.80-5.20); White Blood Cell Count 10.96 K/mm3 (4.00-11.30)
[2019-03-23 10:09] LABS: Bun/Creatinine Ratio 27.6 (12.0-20.0); Calcium, Blood 9.4 mg/dL (8.5-10.1); Creatinine, Blood 1.81 mg/dL (0.40-1.00); Potassium, Blood 4.5 mmol/L (3.5-5.5)
--- NOTE | 2019-03-24 00:11 | NUR ---
0007 REFUSAL OF CARE IN TO CHECK ON PATIENT TO SEE IF HER ATTENDS WERE WET OR DRY. PATIENT STATED "GET OUT, LEAVE ME ALONE". EXPLAINED TO THE PATIENT THAT IT IS IMPORTANT TO NOT SIT IN URINE SOAKED BREIFS. PATIENT ADMANT THAT WE (RN/COVERER) LEAVE HER ALONE. CURRENTLY DRY BRIEFS. WILL RE-CHECK IN A COUPLE OF HOURS.
--- NOTE | 2019-03-24 03:42 | NUR ---
SHIFT SUMMARY PATIENT FINISHED TRANSFUSING THE UNIT OF BLOOD THAT WAS STARTED ON DAY SHIFT. SHE HAD NO ADVERSE REACTIONS OVER NIGHT. SHE HAS BEEN RESISTANT TO GETTING UP TO THE BEDSIDE COMMODE TO URINATE. ASIDE FROM THAT, SHE SLEPT MOST OF THE NIGHT. IV IN RIGHT FOREARM IS PATENT AND FLUSHES. BED IN LOWEST POSITION WITH WHEELS LOCKED. CALL LIGHT AND BELONGINGS WITHIN REACH. REPORT GIVEN TO ONCMARTI MARIE.
--- NOTE | 2019-03-24 06:13 | NUR ---
PHYSICIAN COMMUNICATION PATIENT RECEIVED A UNIT OF PACKED RED BLOOD CELLS YESTERDAY AND HAD NOT RECEIVED ORDERS TO RECHECK HER H&H. CALLED THE SOLAR INSTALLER PHYSICIAN AT [phone] TO SEE WHAT LABS HE WOULD WANT TO ORDER. HE ORDERED A CBC AND BMP.
[2019-03-24 06:31] LABS: BASOPHILS ABSOLUTE AUTO 0.06 K/mm3 (0.00-0.23); BASOPHILS PERCENT AUTO 1 % (0-2); EOSINOPHILS PERCENT AUTO 1 % (0-6); Hematocrit 25.3 % (33.0-51.0); Hemoglobin 8.3 g/dL (11.5-16.0); IMMATURE GRAN ABSOLUTE AUTO 0.24 K/mm3 (0.00-0.10); IMMATURE GRAN PERCENT AUTO 2 % (0-1); LYMPHOCYTES ABSOLUTE AUTO 1.11 K/mm3 (0.84-5.20); LYMPHOCYTES PERCENT AUTO 10 % (21-46); MONOCYTES ABSOLUTE AUTO 1.24 K/mm3 (0.16-1.47); MONOCYTES PERCENT AUTO 11 % (4-13); Mean Corpuscular HGB 30.3 pg (26.0-34.0); Mean Corpuscular HGB Conc 32.8 g/dL (31.5-36.5); Mean Corpuscular Volume 92 fL (80-100); Mean Platelet Volume 9.8 fL (9.1-12.4); NEUTROPHILS ABSOLUTE AUTO 8.11 K/mm3 (1.96-9.15); NEUTROPHILS PERCENT AUTO 75 % (41-73); Platelet Count 445 K/mm3 (150-400); RDW Coefficient Variation 16.9 % (11.7-14.2); RDW Standard Deviation 57.5 fL (35.1-46.3); Red Blood Cell Count 2.74 M/mm3 (3.80-5.20); White Blood Cell Count 10.86 K/mm3 (4.00-11.30)
[2019-03-24 07:05] LABS: Bun/Creatinine Ratio 27.2 (12.0-20.0); Calcium, Blood 9.4 mg/dL (8.5-10.1); Creatinine, Blood 1.62 mg/dL (0.40-1.00); Potassium, Blood 4.4 mmol/L (3.5-5.5)
--- NOTE | 2019-03-24 18:45 | NUR ---
PT. SITTING IN BED AT THIS TIME. JESSIKAM WAS GIVEN THIS AM FOR REPORT OF PAIN. HAS NOT COMPLAINED OF PAIN FOR THE REST OF THIS SHIFT. PT. HAD A TEMP OF 100.1 EARLIER. ALL OF PT'S FAMILY WAS IN ROOM TODAY, PT. VERY EMOTIONAL ABOUT HER LIVING SITUATION WHEN SHE LEAVES HERE. FEELS EVERYONE IS TRYING TO RIP HER OFF OF THE MONEY SHE RECIEVED FOR THE SALE OF HER HOME. SUPPOSED TO BE A MEETING TOMORROW WITH HER 2 GRANDCHILDREN REGARDING HER PLACEMENT. PT. HAD A SHOWER THIS AM AND WAS UP IN CHAIR.
--- NOTE | 2019-03-24 21:48 | NUR ---
LATE ENTRY AROUND 2030 DURING SHARON ASSESSMENT PT REPORTED SHE "HAS THE RIGHT TO " & IS "JUST WANTING TO SINCE I'M NOT GETTING ANY BETTER." PT ASKED IF I HAD A KNIFE SO SHE COULD STAB HERSELF & END EVERYTHING. I REPORTED NO & ASKED IF SHE WAS FEELING SUICIDAL. PT DENIES BEING SUICIDAL, STATES SHE IS "TOO CHICKEN". PT VERY UPSET, IRRITABLE WITH STAFF WHILE CHANGING ATTENDS & THREATENS TO HIT STAFF. INFORMED PT HER BEHAVIOUR WAS UNCALLED FOR SINCE WE ARE JUST TRYING TO HELP. STATES SHE HAS 8/10 PAIN ALLOVER, BUT DENIES THE NEED FOR TYLENOL & STATES "IT DOESN'T WORK." REPOSITIONED & PROVIDED UNINTERUPTED REST FOR PAIN @THIS TIME & I WILL CONT TO MONITOR.
--- NOTE | 2019-03-25 05:27 | NUR ---
SHIFT SUMMARY NO ACUTE CHANGES. SLEPT SOUNDLY T/O NIGHT. AOX4. IRRITABLE W/STAFF @BEGINNING OF SHIFT, SEE PREVIOUS NOTE, MORE CALM & COOPERATIVE W/CARE THE NIGHT PROGRESSED. VSS. DENIES N/V OR DYSPNEA. REPORTED GENERALIZED PAIN BUT DENIED THE NEED FOR MEDICATION. INCONTINENT OF URINE & CHANGED Q2H, EXCEPT 1X WHEN PT REFUSED ATTENDS TO BE CHANGED OR CHECKED. CALL LIGHT IN REACH.
--- NOTE | 2019-03-25 06:40 | NUR ---
MOOD PT TEARFUL THIS AM, STATING SHE IS NERVOUS ABOUT MEETING TODAY. STATES SHE LOST HER 15 YRS AGO & HER ONLY CHILD PASSED 9 YRS AGO, THEREFORE SHE HAS BEEN LIVING INDEPENDENTLY SINCE & IS NOT READY TO GIVE THAT UP. STATES SHE IS AWARE SHE NEEDS EXTRA HELP & WILL PROBABLY HAVE TO GO TO A CARE FACILITY, BUT SHE'S JUST NOT READY TO GIVE UP HER INDEPENDENCE. THANKED PT FOR OPENING UP & SHARING HER CONCERNS.
[2019-03-25] MEDS ORDERED: SYNTHROID175 MCG PO (13:43)
[2019-03-25] MEDS ORDERED: ONDA4ODT MM (13:51)
[2019-03-25] MEDS ORDERED: ACET500 PO (13:52)
[2019-03-25] MEDS ORDERED: MIRT15ST PO (13:53)
[2019-03-25] MEDS ORDERED: CIPR250 PO (13:54)
--- NOTE | 2019-03-25 15:40 | NUR ---
pt discharged THE PT AND HER DAUGHTER VERBALIZED UNDERSTANDING OF THE DC INSTRUCTIONS, THE PTS PRESCRIPTIONS WERE FAXED TO [facility] REQUESTED, THE PT HAD A LARGE BM AFTER SUPPOSITORY AND FLEETS ENEMA, THE BM WAS FORMED, THE PT WAS TRANSFERED VIA WHEELCHAIR ACCOMPANIED BY ESCORT AND HER GRANDDAUGHTER, THE PT WPPEARED TO BE BREATHING EASILY ON RA AT THE TIME OF DC
--- NOTE | 2019-03-25 17:26 | NUR ---
Initial Visits: Pt seen by palliative care for advanced care planning. Past medical history of renal failure, anemia, failure to thrive, UTI, urinary retention and severe depression. Pt is alert, oriented. She reports fatigue and lower mood. She reports that she ambulates with a walker at baseline. When she is depressed, she doesn't eat and she doesn't walk. She lives at [facility] and recently sold her home. Her granddaughter and grandson are present and attentive to her needs. They both live in [place] and are up here to see that she gets healthy. She has a close friend, Jaleesa, that helps her a great deal. Pt reports her depression level is 9/10 right now. Discussed advanced care planning. Pt has a advance directive in place. She is resistant to letting her grandchildren help her with finacial issues, however, she has not paid her bills for a few months because she is getting forgetful. Reviewed benefits of good planning, as it has to do with health, wellness, and finances. Granddaughter, Cari, is a multimedia assistant caregiver for her with PTSD. She has three children. I speak to Cari outside while pt is getting care done. She states that the pt has a number of manipulative behaviors. Pt will call her and tell her that she will refuse to eat until Cari comes up from [place]. Cari's mother is and before she , she was estranged from the pt for many years because of her behavior. Pt's friend, Jaleesa, will call Cari several times per day to get her to come help take care of the pt because she is failing. Pt does agree to update her POLST form. She also agrees to do a POA for finacial while her grandchildren are present. Pt is aware that her health is failing for now and would like to put more things in place for her safety. Saigeary is called to room for the POA. Coaching for Cari and her brother. They are showing signs of stress as the pt is starting to tell them that she doesn't want them to go home. Card given to Cari. No other concerns at this time. Pt has caregiver three times per week. Encouraged to have more caregivers if needed for success in the home and for keeping out of the hospital. New paperwork is sent to medical records.
== END 2019-03-25 16:00 | disposition home or self-care (01) | DRG 683 ==
LOC: ER 13:36 → MEDS 16:03 → ENPENDDIS 03-25 12:27 → MEDS 03-25 16:00
PROVIDERS: Emergency Medicine; Internal Medicine; Internal Medicine Endocrinology, Diabetes & Metabolism; ADMIT Internal Medicine
PROC: 30233N1 Transfusion of Nonautologous Red Blood Cells into Peripheral Vein, Percutaneous Approach (ICD-10-PCS; principal; 2019-03-24)
DX: N17.9 Acute kidney failure, unspecified (principal); N39.0 Urinary tract infection, site not specified; E87.1 Hypo-osmolality and hyponatremia; C85.90 Non-Hodgkin lymphoma, unspecified, unspecified site; E03.9 Hypothyroidism, unspecified; Z92.21 Personal history of antineoplastic chemotherapy; M35.3 Polymyalgia rheumatica; E78.5 Hyperlipidemia, unspecified; Z87.891 Personal history of nicotine dependence; R32 Unspecified urinary incontinence; E83.52 Hypercalcemia; E88.09 Other disorders of plasma-protein metabolism, not elsewhere classified; F32.9 Major depressive disorder, single episode, unspecified; D64.9 Anemia, unspecified; G25.0 Essential tremor; R33.9 Retention of urine, unspecified; N18.3 Chronic kidney disease, stage 3 (moderate); B96.1 Klebsiella pneumoniae [K. pneumoniae] as the cause of diseases classified elsewhere; I12.9 Hypertensive chronic kidney disease with stage 1 through stage 4 chronic kidney disease, or unspecified chronic kidney disease
CPT/HCPCS: 36415; 36430; 80048; 80053; 81001; 85025; 86850; 86900; 86901; 86923; 87077; 87086; 87186; 93005; 93010; 96365; 97110; 97161; 97165; 97530; 97535; 99285-25; A9270; J0696; J2405; J7030; P9016

== ENCOUNTER 2019-04-03 14:47 | Emergency (ER) | payer MEDICARE, OTHER ==
[~2019-04-03] VITALS: Ht 165.1 cm; Wt 50.8 kg
[~2019-04-03 14:47] MED LIST changes: +ACET500 PO; +CIPR250 PO; +MIRT15ST PO; +SYNTHROID175 MCG PO
--- NOTE | 2019-04-04 10:51 | NUR ---
Recieved phone call from home health nurse. She has been requested to ask palliative care some questions regarding patient. Pt is confused at who she spoke to, and after some questions, it was determined that who she really wanted to speak to is a nurse from the home health agency itself. Pt has no further questions for palliative care at this time.
== END 2019-04-03 19:45 | disposition home or self-care (01) ==
LOC: ER 14:47
DX: D64.9 Anemia, unspecified (principal); Z88.6 Allergy status to analgesic agent; Z79.899 Other long term (current) drug therapy; Z87.891 Personal history of nicotine dependence
CPT/HCPCS: 36415; 36430; 86850; 86900; 86901; 86923; 96360; 99283-25; J7030; P9016

== ENCOUNTER 2020-01-02 07:53 | Day surgery (SDC) | payer MEDICARE, OTHER ==
[2020-01-01 11:15] LABS: BASOPHILS ABSOLUTE AUTO 0.07 K/mm3 (0.00-0.23); BASOPHILS PERCENT AUTO 1 % (0-2); EOSINOPHILS ABSOLUTE AUTO 0.12 K/mm3 (0.00-0.68); EOSINOPHILS PERCENT AUTO 2 % (0-6); Hematocrit 20.5 % (33.0-51.0); IMMATURE GRAN ABSOLUTE AUTO 0.01 K/mm3 (0.00-0.10); IMMATURE GRAN PERCENT AUTO 0 % (0-1); LYMPHOCYTES ABSOLUTE AUTO 1.78 K/mm3 (0.84-5.20); LYMPHOCYTES PERCENT AUTO 24 % (21-46); MONOCYTES ABSOLUTE AUTO 0.74 K/mm3 (0.16-1.47); MONOCYTES PERCENT AUTO 10 % (4-13); Mean Corpuscular HGB 26.9 pg (26.0-34.0); Mean Corpuscular HGB Conc 29.3 g/dL (31.5-36.5); Mean Corpuscular Volume 92 fL (80-100); Mean Platelet Volume 10.8 fL (9.1-12.4); NEUTROPHILS ABSOLUTE AUTO 4.59 K/mm3 (1.96-9.15); NEUTROPHILS PERCENT AUTO 63 % (41-73); Platelet Count 434 K/mm3 (150-400); RDW Standard Deviation 50.4 fL (35.1-46.3); Red Blood Cell Count 2.23 M/mm3 (3.80-5.20); White Blood Cell Count 7.31 K/mm3 (4.00-11.30)
[2020-01-01 11:26] LABS: Albumin, Blood 3.1 g/dL (3.4-5.0); Anion Gap 4 mmol/L (6-16); Blood Urea Nitrogen 35 mg/dL (8-24); Bun/Creatinine Ratio 19.8 (12.0-20.0); CO2, Blood 25 mmol/L (21-32); Chloride, Blood 109 mmol/L (98-108); Creatinine, Blood 1.77 mg/dL (0.40-1.00); Glomerular Filtration Rate 29 (60-); Glucose, Blood 105 mg/dL (70-99); Potassium, Blood 4.6 mmol/L (3.5-5.5); Sodium, Blood 138 mmol/L (136-145)
[~2020-01-02 07:53] MED LIST changes: +Hair, Skin & N1 EACH PO
--- NOTE | 2020-01-02 08:35 | NUR ---
ORDERS NOTED, CONSENT ON CHART. LUNGS:CLEAR, DECREASED LLL.
== END 2020-01-02 10:28 | disposition home or self-care (01) ==
LOC: ATC 07:53
PROVIDERS: Internal Medicine
DX: N18.3 Chronic kidney disease, stage 3 (moderate) (principal); D63.1 Anemia in chronic kidney disease; E78.5 Hyperlipidemia, unspecified; E03.9 Hypothyroidism, unspecified; F41.9 Anxiety disorder, unspecified; F32.9 Major depressive disorder, single episode, unspecified; Z88.6 Allergy status to analgesic agent; Z79.899 Other long term (current) drug therapy
CPT/HCPCS: 36415; 36430; 80069; 85025; 86850; 86900; 86901; 86923; J7050; P9016

== ENCOUNTER 2020-01-07 18:10 | Inpatient (IN) | payer MEDICARE, OTHER ==
[~2020-01-07] VITALS: Ht 165.1 cm; Wt 52.2 kg
[2020-01-07 18:49] LABS: BASOPHILS ABSOLUTE AUTO 0.04 K/mm3 (0.00-0.23); BASOPHILS PERCENT AUTO 1 % (0-2); EOSINOPHILS ABSOLUTE AUTO 0.06 K/mm3 (0.00-0.68); EOSINOPHILS PERCENT AUTO 1 % (0-6); Hematocrit 22.1 % (33.0-51.0); Hemoglobin 6.8 g/dL (11.5-16.0); IMMATURE GRAN ABSOLUTE AUTO 0.02 K/mm3 (0.00-0.10); IMMATURE GRAN PERCENT AUTO 0 % (0-1); LYMPHOCYTES PERCENT AUTO 32 % (21-46); MONOCYTES PERCENT AUTO 13 % (4-13); Mean Corpuscular HGB 27.5 pg (26.0-34.0); Mean Corpuscular HGB Conc 30.8 g/dL (31.5-36.5); Mean Corpuscular Volume 90 fL (80-100); Mean Platelet Volume 10.6 fL (9.1-12.4); NEUTROPHILS PERCENT AUTO 53 % (41-73); Platelet Count 475 K/mm3 (150-400); RDW Coefficient Variation 14.8 % (11.7-14.2); RDW Standard Deviation 48.4 fL (35.1-46.3); Red Blood Cell Count 2.47 M/mm3 (3.80-5.20); White Blood Cell Count 6.82 K/mm3 (4.00-11.30)
[2020-01-07] MEDS ORDERED: REMERON30 MG PO (19:14)
[2020-01-07 19:26] LABS: Albumin, Blood 3.4 g/dL (3.4-5.0); Albumin/Globulin Ratio 0.8 (0.8-1.8); Bilirubin, Total 0.2 mg/dL (0.1-1.0); Bun/Creatinine Ratio 23.4 (12.0-20.0); Creatinine, Blood 1.71 mg/dL (0.40-1.00); Globulin, Blood 4.5 g/dL (2.2-4.0); Potassium, Blood 4.2 mmol/L (3.5-5.5); Total Protein, Blood 7.9 g/dL (6.4-8.2)
[2020-01-07 19:28] LABS: International Normalized Ratio 0.96; Prothrombin Time Results 10.3 Sec (9.7-11.5)
--- NOTE | 2020-01-07 21:15 | NUR ---
84 YR OLD FEMALE ADMITTED TO FLOOR FROM THE ED, POST SYNCOPAL EPISODE IN THE ED. H/H LOW, SCHEDULED FOR BLOOD TRANSFUSION. ORIENTED TO CALL LIGHT/BED CONTROL. CALL LIGHT IN REACH
--- NOTE | 2020-01-08 01:33 | NUR ---
ONE UNIT OF PRBC INFUSED, NO NOTED ADVERSE REACTIONS. CALL LIGHT IN REACH. VSS.
--- NOTE | 2020-01-08 02:38 | NUR ---
ATTEMPTED TO CALL GI CONSULT IN TO DR COLON. BUT ANSWERING SERVICE "BENOIT" SAID NO TOOL GRINDER OPERATOR SURFACE GI MD SHAFFER MONDAY AM. WILL PASS THIS ON TO AM RN AND HAVE THEM FOLLOW THROUGH.
--- NOTE | 2020-01-08 04:46 | NUR ---
SHIFT SUMMARY HAS BEEN RESTING QUIETLY WITH FEW INTERRUPTIONS SINCE BLOOD INFUSED. AFFECT CHEERFUL WHEN ROUNDING. CALL LIGHT IN REACH
[2020-01-08 05:16] LABS: BASOPHILS ABSOLUTE AUTO 0.03 K/mm3 (0.00-0.23); BASOPHILS PERCENT AUTO 1 % (0-2); EOSINOPHILS PERCENT AUTO 2 % (0-6); Hematocrit 24.1 % (33.0-51.0); Hemoglobin 7.6 g/dL (11.5-16.0); IMMATURE GRAN ABSOLUTE AUTO 0.02 K/mm3 (0.00-0.10); IMMATURE GRAN PERCENT AUTO 0 % (0-1); LYMPHOCYTES ABSOLUTE AUTO 1.75 K/mm3 (0.84-5.20); LYMPHOCYTES PERCENT AUTO 31 % (21-46); MONOCYTES PERCENT AUTO 16 % (4-13); Mean Corpuscular HGB 27.2 pg (26.0-34.0); Mean Corpuscular HGB Conc 31.5 g/dL (31.5-36.5); Mean Corpuscular Volume 86 fL (80-100); Mean Platelet Volume 10.7 fL (9.1-12.4); NEUTROPHILS ABSOLUTE AUTO 2.88 K/mm3 (1.96-9.15); NEUTROPHILS PERCENT AUTO 51 % (41-73); Platelet Count 412 K/mm3 (150-400); RDW Coefficient Variation 17.2 % (11.7-14.2); RDW Standard Deviation 54.8 fL (35.1-46.3); Red Blood Cell Count 2.79 M/mm3 (3.80-5.20); White Blood Cell Count 5.68 K/mm3 (4.00-11.30)
[2020-01-08 05:52] LABS: Bun/Creatinine Ratio 18.8 (12.0-20.0); Calcium, Blood 10.2 mg/dL (8.5-10.1); Creatinine, Blood 1.7 mg/dL (0.40-1.00); Potassium, Blood 4.5 mmol/L (3.5-5.5)
[2020-01-08 12:47] LABS: Source, Urine Clean Catch
[2020-01-08 12:51] LABS: Appearance, Urine Cloudy (Clear); Bilirubin, Urine Neg (Neg); Blood, Urine 5+ (Neg); Color, Urine Yellow (P-Yellow); Glucose Qualitative, Urine Neg (Neg); Ketones, Urine Neg (Neg); Leukocyte Esterase, Urine 3+ (Neg); Nitrite, Urine Neg (Neg); Protein, Urine 2+ (Neg); Urobilinogen, Urine NORM (Normal)
[2020-01-08 13:15] LABS: White Blood Cells, Urine TNTC /hpf (0-5)
[2020-01-08 13:16] LABS: Bacteria Few /hpf; Red Blood Cells, Urine 50-100 /hpf (0-2); Squamous Epithelial Cells Few /hpf (Few)
--- NOTE | 2020-01-08 15:13 | NUR ---
Spiritual care visit attempted. Upon receiving a request for spiritual care, I visit patient. After arriving outside patient's rm and waiting to go in to see patient (RN Brice was setting things up for patient to receive a transfusion), patient tells Brice that she is too tired for a visit today but asks if I could come back at another time. I, of course, agree to do so.
--- NOTE | 2020-01-08 17:37 | NUR ---
PT HAD PRBC TRANSFUSION THIS SHIFT. TOLERATED WELL. NO ACUTE CHANGES. CHANGES TO MEDICATIONS HAVE DECREASED HER PAIN. CALL LIGHT WITHIN REACH.
--- NOTE | 2020-01-09 04:36 | NUR ---
SHIFT SUMMARY ASSUMED CARE OF PT AT 1900. PT IS A/OX4, DENIES N/T IN EXTREMITES. HEART SOUNDS REGULAR, LUNG SOUNDS DIMINISHED, DENIES CP/SOB. PT HAS HAD NO STOOLS THIS EVENING. PT HAS BEEN NPO SINCE MIDNIGHT. PT WAS VERY ANXIOUS AT THE BEGINNING OF THE SHIFT. PT IS CONCERNED ABOUT WHAT THE DOCTOR MIGHT FIND AND ABOUT HOW SHE DOESNT WANT TO BE A BURDEN ON HER FAMILY. MEDICATED PER EMAR FOR ANXIETY. PT C/O PAIN IN HER KNEES. MEDICATED PER EMAR FOR PAIN. PT WAS FEELING HOPELESS DURING THE NIGHT. PT STATED TO THE MOPHEAD SEWER THAT SHE WAS "READY TO GO" AND DIDNT WANT TO WAKE UP. THERAPUTIC COMMUNICATION WAS GIVEN AND PT RETURNED TO SLEEP. PT HAS EPISODE OF INCONTINENCE DURING THE NIGHT. PT WAS VERY EMBARRASSED. CALL LIGHT IN REACH, BED IN LOWEST POSITION, WILL CONTINUE TO MONITOR UNTIL DAYSHIFT NURSE ARRIVES.
[2020-01-09 05:23] LABS: BASOPHILS ABSOLUTE AUTO 0.05 K/mm3 (0.00-0.23); BASOPHILS PERCENT AUTO 1 % (0-2); EOSINOPHILS ABSOLUTE AUTO 0.16 K/mm3 (0.00-0.68); EOSINOPHILS PERCENT AUTO 3 % (0-6); Hematocrit 28.9 % (33.0-51.0); Hemoglobin 9.2 g/dL (11.5-16.0); IMMATURE GRAN ABSOLUTE AUTO 0.03 K/mm3 (0.00-0.10); IMMATURE GRAN PERCENT AUTO 1 % (0-1); LYMPHOCYTES ABSOLUTE AUTO 2.09 K/mm3 (0.84-5.20); LYMPHOCYTES PERCENT AUTO 33 % (21-46); MONOCYTES ABSOLUTE AUTO 1.03 K/mm3 (0.16-1.47); MONOCYTES PERCENT AUTO 16 % (4-13); Mean Corpuscular HGB 27.1 pg (26.0-34.0); Mean Corpuscular HGB Conc 31.8 g/dL (31.5-36.5); Mean Corpuscular Volume 85 fL (80-100); Mean Platelet Volume 10.7 fL (9.1-12.4); NEUTROPHILS ABSOLUTE AUTO 3.04 K/mm3 (1.96-9.15); NEUTROPHILS PERCENT AUTO 47 % (41-73); Platelet Count 426 K/mm3 (150-400); RDW Coefficient Variation 17.2 % (11.7-14.2); RDW Standard Deviation 54.1 fL (35.1-46.3)
[2020-01-09 05:41] LABS: Bun/Creatinine Ratio 15.4 (12.0-20.0); Calcium, Blood 10.3 mg/dL (8.5-10.1); Creatinine, Blood 1.56 mg/dL (0.40-1.00); Potassium, Blood 4.2 mmol/L (3.5-5.5)
--- NOTE | 2020-01-09 12:15 | NUR ---
01/09/20 1215 Balbina Morgan History, Chart, Medications and Allergies reviewed before start of procedure. PATIENT CONFIRMS NPO STATUS AND AGREES WITH SCHEDULED PROCEDURE. MONITOR INTACT WITH CONTINUOUS PULSE OXIMETRY AND INTERMITTENT BP. O2 VIA N/C INTACT THROUGHOUT SEDATION/PROCEDURE. 3-LEAD EKG REVIEWED WITH PHYSICIAN PRIOR TO START OF PROCEDURE. PATIENT DETERMINED TO BE ASA APPROPRIATE FOR PROPOFOL SEDATION PRIOR TO START OF PROCEDURE BY DR. COLON.
--- NOTE | 2020-01-09 14:55 | NUR ---
Spiritual care visit conducted. Patient is sitting up in bed and alert. Patient tells me that she has recently returned from an endoscopy and is hungry. Patient talks about her medical history including her bout with cancer, about her daughter and 's deaths and about her Druze heriberto. Patient talks at length about her family and how they all live in [place]. She states that she has decided not to move there because of the quality of care she has received here and the friends that she has. Patient tells me that she has absolute peace about dying and looks forward to seeing her daughter and again. I listen empathically, normalize patient's experience and provide grief support, pastoral industrial relations counselor and prayer. Patient responds well and shows signs of an elevated mood. I will continue to remain available to aptient and family.
[2020-01-09] MEDS ORDERED: FERSU300 PO (16:20)
[2020-01-09] MEDS ORDERED: HYDPAM25 PO (16:21)
[2020-01-09] MEDS ORDERED: SERT50 PO (16:22)
[2020-01-09] MEDS ORDERED: LIDOCAINE PAIN1 EACH TOP (16:22)
[2020-01-09] MEDS ORDERED: PANT40 PO (16:23)
--- NOTE | 2020-01-09 16:49 | NUR ---
DISCHARGE DISCHARGE MEDICATIONS AND INSTRUCTIONS EXPLAINED TO PATIENT. PATIENT STATED UNDERSTANDING. GI OFFICE AND [facility] WILL CALL PATIENT AT HOME TO SCHEDULE FOLLOW UPS. IV REMOVED WITHOUT DIFFICULTY. BELONGINGS WITH PATIENT. PATIENT TRANSFERED TO PRIVATE VEHICLE VIA WHEELCHAIR.
== END 2020-01-09 16:40 | disposition home or self-care (01) | DRG 379 ==
LOC: ER 18:10 → MEDS 18:11
PROVIDERS: Emergency Medicine; Family Medicine; Internal Medicine Gastroenterology; Nurse Practitioner Acute Care; ADMIT Internal Medicine
PROC: 30233N1 Transfusion of Nonautologous Red Blood Cells into Peripheral Vein, Percutaneous Approach (ICD-10-PCS; 2020-01-07)
PROC: 0D558ZZ Destruction of Esophagus, Via Natural or Artificial Opening Endoscopic (ICD-10-PCS; 2020-01-09)
PROC: 0DB78ZX Excision of Stomach, Pylorus, Via Natural or Artificial Opening Endoscopic, Diagnostic (ICD-10-PCS; principal; 2020-01-09 12:00)
DX: K25.4 Chronic or unspecified gastric ulcer with hemorrhage (principal); K22.2 Esophageal obstruction; K29.80 Duodenitis without bleeding; Z20.828 Contact with and (suspected) exposure to other viral communicable diseases; D63.1 Anemia in chronic kidney disease; D50.9 Iron deficiency anemia, unspecified; R31.0 Gross hematuria; I12.9 Hypertensive chronic kidney disease with stage 1 through stage 4 chronic kidney disease, or unspecified chronic kidney disease; N18.3 Chronic kidney disease, stage 3 (moderate); K21.9 Gastro-esophageal reflux disease without esophagitis; M81.0 Age-related osteoporosis without current pathological fracture; G25.81 Restless legs syndrome; E78.5 Hyperlipidemia, unspecified; Q76.2 Congenital spondylolisthesis; N32.81 Overactive bladder; G47.00 Insomnia, unspecified; E55.9 Vitamin D deficiency, unspecified; M35.3 Polymyalgia rheumatica; E89.0 Postprocedural hypothyroidism; M15.9 Polyosteoarthritis, unspecified; F41.8 Other specified anxiety disorders; G60.9 Hereditary and idiopathic neuropathy, unspecified; Z66 Do not resuscitate; Z85.72 Personal history of non-Hodgkin lymphomas; Z79.899 Other long term (current) drug therapy; Z87.891 Personal history of nicotine dependence; Z88.8 Allergy status to other drugs, medicaments and biological substances
CPT/HCPCS: 36415; 36430; 80048; 80053; 81001; 82272; 85025; 85610; 85730; 86850; 86900; 86901; 86923; 87086; 88305; 88341; 88342; 93005; 93010; 96365; 96375; 96376; 99285-25; C9113; G0378; J2405; J2704; J3010; J3480; J7030; J7050; P9016; U0002

== ENCOUNTER → 2020-01-27 | Outpatient (CLI) | payer MEDICARE, OTHER ==
[~2020-01-27] MED LIST changes: +FERSU300 PO; +HYDPAM25 PO; +LIDOCAINE PAIN1 EACH TOP; +PANT40 PO; +REMERON30 MG PO; +SERT50 PO
[2020-01-27 19:24] LABS: Bilirubin, Urine Neg (Neg); Blood, Urine 3+ (Neg); Glucose Qualitative, Urine Neg (Neg); Ketones, Urine Neg (Neg); Leukocyte Esterase, Urine 3+ (Neg); Nitrite, Urine Neg (Neg); Protein, Urine 3+ (Neg); Urobilinogen, Urine NORM (Normal)
[2020-01-27 20:10] LABS: Appearance, Urine Cloudy (Clear); Color, Urine Yellow (P-Yellow)
[2020-01-27 20:13] LABS: Bacteria Mod /hpf; White Blood Cells, Urine TNTC /hpf (0-5)
[2020-01-27 20:14] LABS: Squamous Epithelial Cells Few /hpf (Few)
== END | disposition home or self-care (01) ==
LOC: LAB SHORT 17:40 → LAB 17:40
PROVIDERS: Internal Medicine
DX: N39.0 Urinary tract infection, site not specified (principal)
CPT/HCPCS: 81001; 87077; 87086; 87186

== ENCOUNTER 2020-02-21 10:10 | Emergency (ER) | payer MEDICARE, OTHER ==
[~2020-02-21] VITALS: Ht 165.1 cm; Wt 53.5 kg
[2020-02-21 11:06] LABS: BASOPHILS ABSOLUTE AUTO 0.04 K/mm3 (0.00-0.23); BASOPHILS PERCENT AUTO 1 % (0-2); EOSINOPHILS ABSOLUTE AUTO 0.48 K/mm3 (0.00-0.68); EOSINOPHILS PERCENT AUTO 7 % (0-6); Hematocrit 21.7 % (33.0-51.0); Hemoglobin 6.5 g/dL (11.5-16.0); IMMATURE GRAN ABSOLUTE AUTO 0.03 K/mm3 (0.00-0.10); IMMATURE GRAN PERCENT AUTO 1 % (0-1); LYMPHOCYTES ABSOLUTE AUTO 1.52 K/mm3 (0.84-5.20); LYMPHOCYTES PERCENT AUTO 23 % (21-46); MONOCYTES ABSOLUTE AUTO 0.91 K/mm3 (0.16-1.47); MONOCYTES PERCENT AUTO 14 % (4-13); Mean Corpuscular HGB 25.9 pg (26.0-34.0); Mean Corpuscular Volume 87 fL (80-100); Mean Platelet Volume 10.7 fL (9.1-12.4); NEUTROPHILS ABSOLUTE AUTO 3.65 K/mm3 (1.96-9.15); NEUTROPHILS PERCENT AUTO 55 % (41-73); Platelet Count 403 K/mm3 (150-400); RDW Coefficient Variation 17.3 % (11.7-14.2); RDW Standard Deviation 55.3 fL (35.1-46.3); Red Blood Cell Count 2.51 M/mm3 (3.80-5.20); White Blood Cell Count 6.63 K/mm3 (4.00-11.30)
[2020-02-21 11:26] LABS: Albumin, Blood 3.1 g/dL (3.4-5.0); Albumin/Globulin Ratio 0.8 (0.8-1.8); Bilirubin, Total 0.3 mg/dL (0.1-1.0); Bun/Creatinine Ratio 25.7 (12.0-20.0); Calcium, Blood 10.5 mg/dL (8.5-10.1); Creatinine, Blood 1.36 mg/dL (0.40-1.00); Globulin, Blood 4.1 g/dL (2.2-4.0); Potassium, Blood 4.3 mmol/L (3.5-5.5); Total Protein, Blood 7.2 g/dL (6.4-8.2)
== END 2020-02-21 14:11 | disposition home or self-care (01) ==
LOC: ER 10:10
PROVIDERS: Emergency Medicine
DX: D53.9 Nutritional anemia, unspecified (principal); K25.9 Gastric ulcer, unspecified as acute or chronic, without hemorrhage or perforation; I12.9 Hypertensive chronic kidney disease with stage 1 through stage 4 chronic kidney disease, or unspecified chronic kidney disease; N18.30 Chronic kidney disease, stage 3 unspecified; E03.9 Hypothyroidism, unspecified; E78.5 Hyperlipidemia, unspecified; K21.9 Gastro-esophageal reflux disease without esophagitis; Z88.6 Allergy status to analgesic agent; Z79.899 Other long term (current) drug therapy; Z87.891 Personal history of nicotine dependence
CPT/HCPCS: 36415; 36430; 80053; 85025; 86850; 86900; 86901; 86923; 99283-25; J7030; P9016

== ENCOUNTER 2020-05-13 00:38 | Day surgery (SDC) | payer MEDICARE, OTHER ==
[2020-05-13] MEDS ORDERED: GABA300 PO (14:07)
[2020-05-13] MEDS ORDERED: FERROUS SULFAT325 M3 PO (14:07)
[2020-05-13] MEDS ORDERED: EUTHYROX75 MCG PO (14:07)
[2020-05-13] MEDS ORDERED: HYDHCL25 PO (14:07)
[2020-05-13] MEDS ORDERED: PANT40 PO (14:08)
[2020-05-13] MEDS ORDERED: SERT50 PO (14:08)
== END 2020-05-13 12:05 | disposition home or self-care (01) ==
LOC: ATC 00:38
PROC: 30233N1 Transfusion of Nonautologous Red Blood Cells into Peripheral Vein, Percutaneous Approach (ICD-10-PCS; principal; 2020-05-13)
DX: I12.9 Hypertensive chronic kidney disease with stage 1 through stage 4 chronic kidney disease, or unspecified chronic kidney disease (principal); N18.30 Chronic kidney disease, stage 3 unspecified; D63.1 Anemia in chronic kidney disease; E55.9 Vitamin D deficiency, unspecified; E03.9 Hypothyroidism, unspecified; E78.5 Hyperlipidemia, unspecified; D50.9 Iron deficiency anemia, unspecified; K21.9 Gastro-esophageal reflux disease without esophagitis; Z87.891 Personal history of nicotine dependence; Z88.6 Allergy status to analgesic agent; Z20.822 Contact with and (suspected) exposure to COVID-19
CPT/HCPCS: 36415; 36430; 86850; 86870; 86900; 86901; 86920; J7050; P9016

== ENCOUNTER 2020-05-21 11:14 | Day surgery (SDC) | payer MEDICARE, OTHER ==
[~2020-05-21] VITALS: Ht 160 cm; Wt 56.2 kg
[~2020-05-21 11:14] MED LIST changes: +EUTHYROX75 MCG PO; +FERROUS SULFAT325 M3 PO; +GABA300 PO; +HYDHCL25 PO
[2020-05-21] MEDS ORDERED: TRAZ50 (11:59)
== END 2020-05-21 13:25 | disposition home or self-care (01) ==
LOC: ORSCSDS 11:14
PROVIDERS: Internal Medicine Gastroenterology
PROC: 0DJ08ZZ Inspection of Upper Intestinal Tract, Via Natural or Artificial Opening Endoscopic (ICD-10-PCS; principal; 2020-05-21 12:30)
DX: D50.0 Iron deficiency anemia secondary to blood loss (chronic) (principal); Z87.11 Personal history of peptic ulcer disease; K22.8 Other specified diseases of esophagus; E78.5 Hyperlipidemia, unspecified; F32.9 Major depressive disorder, single episode, unspecified; Z87.891 Personal history of nicotine dependence; Z79.899 Other long term (current) drug therapy
CPT/HCPCS: J2704; J7120